=== PATIENT | male | born 1960 | race Caucasian/White ===

== ENCOUNTER 2020-10-26 10:56 | Emergency (ER) | payer BC ==
--- NOTE | 2020-10-26 11:07 | ER Document Report ---
ED Medical Screen (RME) - General Chief Complaint: Swallowed Foreign Body Stated Complaint: SWALLOWED FOREIGN BODY Time Seen by Provider: 10/26/20 11:03 Mode of Arrival: Ambulatory Information source: Patient Physical Exam - Vital signs Vitals: Temp Pulse Resp BP Pulse Ox 97.9 F 69 16 165/91 H 97 10/26/20 11:02 10/26/20 11:02 10/26/20 11:02 10/26/20 11:02 10/26/20 11:02 Course - Vital Signs Vital signs: Temp Pulse Resp BP Pulse Ox 97.9 F 69 16 165/91 H 97 10/26/20 11:02 10/26/20 11:02 10/26/20 11:02 10/26/20 11:02 10/26/20 11:02
[2020-10-26 11:09] VITALS: BP 165/91
--- NOTE | 2020-10-26 11:20 | ER Document Report ---
HPI - HPI Time Seen by Provider: 10/26/20 11:03 Pain Level: Denies Notes: 50-year-old male patient presents to emergency department with concern for possible swallowing of foreign body. Patient reports he went to sleep last night with a dental appliance in his mouth, he woke up and cannot find it. He denies any sensation that he swallowed something or any difficulty breathing. - ROS Systems Reviewed and Negative: Yes All other systems reviewed and negative - See HPI Past Medical History - General Information source: Patient - Social History Smoking Status: Never Smoker Chew tobacco use (# tins/day): No Frequency of alcohol use: None Drug Abuse: None Family History: Reviewed & Not Pertinent - Past Medical History Cardiac Medical History: Reports: Hx Hypercholesterolemia, Hx Hypertension Past Surgical History: Reports: Hx Cardiac Surgery, Hx Kidney (Renal Surgery) Vertical Provider Document - CONSTITUTIONAL Notes: PHYSICAL EXAMINATION: GENERAL: Well-appearing, well-nourished and in no acute distress. HEAD: Atraumatic, normocephalic. EYES: Pupils equal round extraocular movements intact, conjunctiva are normal. ENT: Nares patent NECK: Normal range of motion LUNGS: No respiratory distress Musculoskeletal: Normal range of motion NEUROLOGICAL: Normal speech, normal gait. PSYCH: Normal mood, normal affect. SKIN: Warm, Dry, normal turgor, no rashes or lesions noted. Course - Vital Signs Vital signs: Temp Pulse Resp BP Pulse Ox 97.9 F 69 16 165/91 H 97 10/26/20 11:02 10/26/20 11:02 10/26/20 11:02 10/26/20 11:02 10/26/20 11:02 - Laboratory Results Critical Laboratory Results Reviewed: No Critical Results - Radiology Results Critical Radiology Results Reviewed: No Critical Results Discharge - Discharge Clinical Impression: Encounter for medical screening examination Condition: Stable Disposition: HOME, SELF-CARE Additional Instructions: The x-ray did not show any retained foreign body. Please return if any additional concerns.
--- NOTE | 2020-10-26 11:34 | RADIOLOGY REPORT (SQ) ---
EXAM DESCRIPTION: ACUTE ABDOMEN SERIES IMAGES COMPLETED DATE/TIME: 10/26/2020 11:21 am REASON FOR STUDY: possibly swallowed dental appliance COMPARISON: None. NUMBER OF VIEWS: Three views. TECHNIQUE: Frontal chest, supine abdomen and upright/decubitus abdomen radiographic images acquired. LIMITATIONS: None. FINDINGS: CHEST: Lungs clear of infiltrates. FREE AIR: None. No abnormal gas collections. BOWEL GAS PATTERN: Nonobstructive pattern. No dilated loops or air fluid levels. CALCIFICATIONS: No suspicious calcifications. HARDWARE: None in the abdomen. SOFT TISSUES: No gross mass or suggestion of organomegaly. BONES: No acute fracture. No worrisome bone lesions. OTHER: No other significant finding. IMPRESSION: NO RADIOGRAPHIC EVIDENCE FOR ACUTE ABDOMINAL DISEASE. TECHNICAL DOCUMENTATION: JOB ID: [id number] 2010 [employer]- All Rights Reserved Reading location - IP/workstation name: [email or web address]
== END 2020-10-26 12:08 | disposition home or self-care (01) ==
LOC: ER 10:56
DX: Z04.89 Encounter for examination and observation for other specified reasons (principal); I10 Essential (primary) hypertension
CPT/HCPCS: 74022; 99283